=== PATIENT | female | born 2000 | race African-American/Black ===

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

== ENCOUNTER 2019-11-08 11:46 | Emergency (ER) | payer OTHER ==
[2019-11-08 11:57] VITALS: TEMP 98.1; BMI 49.6
[2019-11-08] MEDS ORDERED: METOCLOPRAMIDE HCL INJECTION 10 MG/2 ML VIAL IVPUSH ONE (12:19)
--- NOTE | 2019-11-08 12:19 | PDOC ---
History of Present Illness - General Chief Complaint: Migraine Headache Stated Complaint: HEADACHES Time Seen by Provider: 11/08/19 12:05 History Source: Patient Exam Limitations: No Limitations - History of Present Illness Initial Comments: 11/08/19 12:40 CHIEF COMPLAINT: Headache HISTORY OF PRESENT ILLNESS: This is a 19-year-old female with a history of asthma (no hospitalizations no exacerbations from many years), who presents for evaluation of left frontal headache and vomiting. The patient reports that she has had intermittent headaches which she describes as severe several times a week for several months. This episode is associated with nausea/vomiting. She has not had any visual changes, focal weakness, numbness, or any other symptoms. She initially reported a history of migraines, however on further questioning reports that she has not actually received a diagnosis of migraines and has never had neuroimaging. Vital signs on arrival are notable for mildly elevated BP: 141/63. REVIEW OF SYSTEMS: GENERAL/CONSTITUTIONAL: No fever or chills. No weakness. No weight change. HEAD, EYES, EARS, NOSE AND THROAT: Nasal congestion, cold symptoms prior to onset of this headache. CARDIOVASCULAR: No chest pain or palpitations. RESPIRATORY: No cough, wheezing, or shortness of breath. GASTROINTESTINAL: Nausea/vomiting. No diarrhea or constipation. GENITOURINARY: No dysuria, frequency, or change in urination. MUSCULOSKELETAL: No joint or muscle swelling or pain. No neck or back pain. SKIN: No rash or easy bruising. NEUROLOGIC: See HPI. PSYCHIATRIC: No depression or anxiety. ENDOCRINE: No increased thirst. No abnormal weight change. HEMATOLOGIC/LYMPHATIC: No anemia, easy bleeding, or history of blood clots. ALLERGIC/IMMUNOLOGIC: No hives or skin allergy. No latex allergy. PHYSICAL EXAM: GENERAL: The patient is awake, alert, and fully oriented, in no acute distress. HEAD: Normal with no signs of trauma. ENT: Pupils equal, round and reactive to light, extraocular movements intact, sclera anicteric, conjunctiva clear. Neck supple. LUNGS: Clear to auscultation bilaterally. Normal excursion. No respiratory distress or use of accessory muscles. CV: RRR, S1/S2, no MRG. Cap refill < 2 sec. ABDOMEN: Soft, non-distended, non-tender. EXTREMITIES: Normal range of motion, no edema. NEUROLOGICAL: Normal speech, normal gait. CN II-XII grossly intact. NIHSS=0. PSYCH: Normal mood, normal affect. SKIN: Warm, dry, normal turgor, no rashes or lesions noted. = Past History - Past Medical History Allergies/Adverse Reactions: Allergies Allergy/AdvReac Type Severity Reaction Status Date / Time No Known Allergies Allergy Verified 11/08/19 11:54 Home Medications: Ambulatory Orders Amox-Tr/K Cl [Augmentin - 875Mg Tablet] 1 tab PO BID #20 tablet 11/08/19 Ibuprofen [Motrin -] 600 mg PO QID PRN #30 tablet 11/08/19 Asthma: Yes COPD: No - Immunization History TDAP Vaccination: Yes Immunization Up to Date: Yes - Psycho Social/Smoking Cessation Hx Smoking Status: No Smoking History: Never smoked Have you smoked in the past 12 months: No Number of Cigarettes Smoked Daily: 0 Information on smoking cessation initiated: No Hx Alcohol Use: No Drug/Substance Use Hx: No Substance Use Type: None *Physical Exam - Vital Signs Last Vital Signs Temp Pulse Resp BP Pulse Ox 98.1 F 85 18 141/63 98 11/08/19 11:55 11/08/19 11:55 11/08/19 11:55 11/08/19 11:55 11/08/19 11:55 ED Treatment Course - LABORATORY CBC & Chemistry Diagram: 11/08/19 12:30 11/08/19 12:30 Medical Decision Making - Medical Decision Making 11/08/19 12:44 A/P: 19-year-old female with headache and vomiting. No focal neurologic deficits on exam, however in the absence of prior neuroimaging, frequency and severity of headaches is concerning. 1. Basic labs 2. CT brain 3. Reglan/Benadryl/Tylenol/fluids for symptomatic relief 4. Reevaluate 11/08/19 15:07 Headache and nausea relieved after addition of Zofran. CT brain reviewed and is negative for acute intracranial process, other than the appearance of acute sinusitis. Given patient's congestion/subjective fever will treat with antibiotics. Will prescribe Augmentin and ibuprofen. Referral made to neurology in case of continued headaches. Return precautions reviewed with patient. Discharge - Discharge Information Problems reviewed: Yes Clinical Impression/Diagnosis: Headache Condition: Improved Disposition: HOME - Admission No - Additional Discharge Information Prescriptions: Amox-Tr/K Cl [Augmentin - 875Mg Tablet] 1 tab PO BID #20 tablet Ibuprofen [Motrin -] 600 mg PO QID PRN #30 tablet PRN Reason: Pain - Follow up/Referral Referrals: Harish Sanders MD [Primary Care Provider] - 1 week Stanton Hardy MD [Staff Physician] - Call tomorrow (Neurology in case of continued headaches) - Patient Discharge Instructions Patient Printed Discharge Instructions: DI for Sinusitis Additional Instructions: Take Augmentin (antibiotic) and high-dose ibuprofen (for pain) for treatment of sinusitis Follow-up with Dr. Sanders next week If headaches continue, make an appointment with the neurologist (referral enclosed) Return here for sudden/severe headache, change in vision, weakness/numbness of your arms or legs, vomiting/inability to keep down fluids, or any other concerning symptoms - Post Discharge Activity
[2019-11-08] MEDS ORDERED: ACETAMINOPHEN 500 MG TABLET (FP) PO ONE (12:22)
[2019-11-08] MEDS ORDERED: ACETAMINOPHEN 325 MG TABLET (FP) ONE (12:35)
[2019-11-08] MEDS ORDERED: METOCLOPRAMIDE HCL INJECTION 10 MG/2 ML VIAL ONE (12:35)
[2019-11-08] MEDS ORDERED: SODIUM CHLORIDE 1,000 ML IV STA (12:45)
[2019-11-08] MEDS ORDERED: ONDANSETRON 4 MG/2 ML VIAL IVPUSH ONE (13:48)
[2019-11-08] MEDS ORDERED: ONDANSETRON 4 MG/2 ML VIAL ONE (14:33)
[2019-11-08 14:53] LABS: BASO % 0.6 % (0-2.0); EOS % 1.8 % (0-4.5); HEMATOCRIT 38.9 % (32.4-45.2); HEMOGLOBIN 12.9 GM/dL (10.7-15.3); LYMPH % 19.1 % (8-40); MCH 27.4 pg (25.7-33.7); MCHC 33.1 g/dl (32.0-36.0); MEAN CELL VOLUME 82.8 fl (80-96); MEAN PLT VOLUME 8.1 fl (7.5-11.1); MONO % 6.2 % (3.8-10.2); NEUT % 72.3 % (42.8-82.8); PLATELET COUNT 418 K/MM3 (134-434); RDW 14.4 % (11.6-15.6); WHITE BLOOD COUNT 9.4 K/mm3 (4.0-10.0)
[2019-11-08 15:23] LABS: ALBUMIN 3.7 g/dl (3.4-5.0); BILIRUBIN,TOTAL 0.2 mg/dL (0.2-1); BLOOD UREA NITROGEN 12.5 mg/dL (7-18); CALCIUM 9.6 mg/dL (8.5-10.1); CREATININE 0.6 mg/dL (0.55-1.3); POTASSIUM 4.8 mmol/L (3.5-5.1); TOT PROT 7.6 g/dl (6.4-8.2)
[2019-11-08 15:46] VITALS: BP 115/64; PULSE 67
== END 2019-11-08 16:04 | disposition home or self-care (01) ==
LOC: JER 11:46
PROC: 3E033GC Introduction of Other Therapeutic Substance into Peripheral Vein, Percutaneous Approach (ICD-10-PCS; principal; 2019-11-08)
PROC: 3E033GC Introduction of Other Therapeutic Substance into Peripheral Vein, Percutaneous Approach (ICD-10-PCS; 2019-11-08)
PROC: 3E033GC Introduction of Other Therapeutic Substance into Peripheral Vein, Percutaneous Approach (ICD-10-PCS; 2019-11-08)
DX: J01.90 Acute sinusitis, unspecified (principal); R51 Headache; R11.2 Nausea with vomiting, unspecified
CPT/HCPCS: 36415; 70450-TC; 80053; 84703; 85025; 96374; 96375; 99285-25; J7030

== ENCOUNTER 2021-04-07 18:57 | Emergency (ER) | payer OTHER ==
[2021-04-07 19:09] VITALS: TEMP 98.7; BMI 51.3
[2021-04-07] MEDS ORDERED: SODIUM CHLORIDE 0.9% 500 ML INFUS.BAG IV ONE (20:47)
[2021-04-07 21:08] LABS: EOS % 1.3 % (0-4.5); HEMOGLOBIN 12.9 GM/dL (10.7-15.3); LYMPH % 26.4 % (8-40); MCH 26.9 pg (25.7-33.7); MCHC 33.1 g/dl (32.0-36.0); MEAN CELL VOLUME 81.4 fl (80-96); MEAN PLT VOLUME 7.5 fl (7.5-11.1); MONO % 6.7 % (3.8-10.2); NEUT % 64.6 % (42.8-82.8); PLATELET COUNT 486 10^3/uL (134-434); RBC 4.79 M/mm3 (3.60-5.2); RDW 14.8 % (11.6-15.6); WHITE BLOOD COUNT 11.4 K/mm3 (4.0-10.0)
[2021-04-07 21:14] LABS: URINE APPEARANCE CLEAR; URINE BILIRUBIN NEGATIVE (NEGATIVE); URINE COLOR YELLOW; URINE GLUCOSE (UA) NEGATIVE (NEGATIVE); URINE KETONE NEGATIVE (NEGATIVE); URINE LEUK ESTERASE NEGATIVE (NEGATIVE); URINE NITRITE NEGATIVE (NEGATIVE); URINE PROTEIN NEGATIVE (NEGATIVE)
[2021-04-07 21:17] LABS: HCG,QUALITATIVE URINE Negative
[2021-04-07 21:26] LABS: ALBUMIN 3.8 g/dl (3.4-5.0); BLOOD UREA NITROGEN 10.3 mg/dL (7-18); CALCIUM 9.2 mg/dL (8.5-10.1)
[2021-04-07 21:30] LABS: CREATININE 0.7 mg/dL (0.55-1.3)
[2021-04-07 21:31] LABS: BILIRUBIN,TOTAL 0.2 mg/dL (0.2-1); TOT PROT 7.9 g/dl (6.4-8.2)
[2021-04-07 23:27] VITALS: BP 120/69; PULSE 76
== END 2021-04-08 01:05 | disposition home or self-care (01) ==
LOC: JER 18:57
DX: R10.31 Right lower quadrant pain (principal)
CPT/HCPCS: 36415; 74177-TC; 76830-TC; 80053; 81003; 84703; 85025; 87086; 99285-25

== ENCOUNTER 2022-06-29 18:01 | Emergency (ER) | payer OTHER ==
[2022-06-29 18:29] VITALS: BP 127/88; PULSE 83; RESP 20; TEMP 98.5; BMI 53.1
== END 2022-06-29 19:02 | disposition home or self-care (01) ==
LOC: JERFT 18:01
DX: M25.561 Pain in right knee (principal)
CPT/HCPCS: 73562-TC-RT-FY; 99283-25

== ENCOUNTER 2022-08-14 16:36 | Emergency (ER) | payer OTHER ==
[2022-08-14 16:45] VITALS: RESP 18; BMI 51.3
[2022-08-14] MEDS ORDERED: ACETAMINOPHEN 500 MG TABLET (FP) PO ONE (17:08)
[2022-08-14] MEDS ORDERED: IBUPROFEN 600 MG TABLET (FP) PO ONE (17:09)
[2022-08-14 19:58] VITALS: BP 105/70; PULSE 87; TEMP 97.7
== END 2022-08-14 20:14 | disposition home or self-care (01) ==
LOC: JER 16:36
DX: U07.1 COVID-19 (principal)
CPT/HCPCS: 0241U-QW; 99283-25

== ENCOUNTER 2023-03-23 02:32 | Emergency (ER) | payer OTHER ==
[2023-03-23 02:41] VITALS: BP 129/85; PULSE 92; RESP 18; TEMP 98.9; BMI 50.5
[2023-03-23] MEDS ORDERED: ACETAMINOPHEN 325 MG TABLET (FP) PO ONE (05:10)
[2023-03-23] MEDS ORDERED: ACETAMINOPHEN 325 MG TABLET (FP) ONE (05:18)
== END 2023-03-23 05:35 | disposition home or self-care (01) ==
LOC: JER 02:32
DX: H92.01 Otalgia, right ear (principal); G47.00 Insomnia, unspecified; H60.91 Unspecified otitis externa, right ear
CPT/HCPCS: 99283-25